=== PATIENT | female | born 1990 | race American Indian/Alaskan Native ===

== ENCOUNTER 2018-10-27 18:36 | Emergency (ER) | payer OTHER ==
--- NOTE | 2018-10-27 23:40 | Emergency Department Report ---
ED Rash HPI - HPI Chief Complaint: Skin Rash Stated Complaint: RASH Time Seen by Provider: 10/27/18 23:18 Suspected Cause: Unknown (went to the gym and was lying on a [place] and at the gym developed a pruritic rash over her entire body does continue to progress since the onset about 5-6 days ago.) Rash Symptoms: Yes Itching, No Breathing Difficulties, No Choking Sensation, No Wheezing/Dyspnea, No Peeling, No Blistering, No Fever, No Lightheaded, No Malaise, No Myalgias ED Review of Systems ROS: Stated complaint: RASH Other details as noted in HPI Constitutional: denies: chills, fever Eyes: denies: eye pain, eye discharge, vision change ENT: denies: ear pain, throat pain Respiratory: denies: cough, shortness of breath, wheezing Cardiovascular: denies: chest pain, palpitations Endocrine: no symptoms reported Gastrointestinal: denies: abdominal pain, nausea, diarrhea Genitourinary: denies: urgency, dysuria, discharge Musculoskeletal: denies: back pain, joint swelling, arthralgia Skin: rash. denies: lesions Neurological: denies: headache, weakness, paresthesias Psychiatric: denies: anxiety, depression Hematological/Lymphatic: denies: easy bleeding, easy bruising ED Past Medical Hx - Past Medical History Previous Medical History?: No - Surgical History Past Surgical History?: No - Social History Smoking Status: Never Smoker Substance Use Type: None - Medications Home Medications: Home Medications Medication Instructions Recorded Confirmed Last Taken Type Chlorhexidine Gluconate [Hibiclens] 10 ml TP BID #240 liquid 10/27/18 Unknown Rx Mometasone Furoate [Elocon] 45 gm TP BID #1 cream..g. 10/27/18 Unknown Rx cephALEXin [Keflex] 500 mg PO Q6HR #40 capsule 10/27/18 Unknown Rx hydrOXYzine HCL [Atarax] 25 mg PO Q6HR PRN #20 tablet 10/27/18 Unknown Rx Rash Exam - Exam General: Vital signs noted. No distress. Alert and acting appropriately. HEENT: No Periorbital Edema, No Conjuctival Injection, No Chemosis, No Perioral Edema, No Tongue Edema, No Uvular Edema, No Compromised Airway, No Drooling Lungs: Yes Good Air Exchange (Normal Breath Sounds), No Wheezes, No Ronchi, No Stridor, No Cough, No Labored Respirations, No Retractions, No Use of Accessory Muscles, No Other Abnormal Lung Sounds Heart: Yes Regular, No Murmur Skin: Yes Maculopapular Rash, No Urticarial Rash, No Morbilliform rash, No Bulla(e), No Excoriations, No Weeping, No Tenderness, No Erythema, No Edema, No Encrustations Other: Positive: Abdomen Normal, Neurologic Normal, Musculoskeletal Normal ED Course Vital Signs 10/27/18 19:51 Temperature 97.9 F Pulse Rate 81 Respiratory 18 Rate Blood Pressure 109/67 O2 Sat by Pulse 99 Oximetry ED Medical Decision Making - Medical Decision Making Discussed with patient given the nature of the rash. She states that she has been shaving him home. The primary and noticed more about popping up." Those regions. Advised her to refrain from any hair removal processes to wash with antimicrobials so since the last Body aches as we prescribed. She's also been refraining from October since almost and profuse activities, which causes a lot of overheating and sweating as this could make issue worsen over the next week. Critical care attestation.: If time is entered above; I have spent that time in minutes in the direct care of this critically ill patient, excluding procedure time. ED Disposition Clinical Impression: Rash and nonspecific skin eruption Disposition: - TO HOME OR SELFCARE Is pt being admited?: No Does the pt Need Aspirin: No Condition: Stable Instructions: Acute Rash (ED) Referrals: NEGRA ENG MD [Primary Care Provider] - 3-5 Days
== END 2018-10-27 23:50 | disposition home or self-care (01) ==
LOC: ED 18:36
CPT/HCPCS: 99282